=== PATIENT | female | born 1975 | race Caucasian/White ===

== ENCOUNTER → 2019-06-13 | Outpatient (CLI) | payer SELFPAY | END | disposition home or self-care (01) | LOC: COVID19 11:57 | DX: U07.1 COVID-19 (principal) ==

== ENCOUNTER 2023-10-03 22:25 | Emergency (ER) | payer OTHER ==
[~2023-10-03] VITALS: Ht 182.8 cm; Wt 97.5 kg
[2023-10-03] MEDS ORDERED: NAPROSYN500 MG PO ×2 (22:49→23:04)
[2023-10-03] MEDS ORDERED: PENICILLIN VK500 MG PO ×2 (22:49→23:04)
[2023-10-03] MEDS ORDERED: PENICILLIN V POTASSIUM 500 MG TAB PO ONE (22:50)
[2023-10-03] MEDS ORDERED: Acetaminophen/Oxycodone 5 MG/325 MG TABLET PO ONE (22:50)
[2023-10-03] MEDS ORDERED: Ketorolac Tromethamine 60 MG/2 ML VIAL IM ONE (22:50)
== END 2023-10-03 23:06 | disposition home or self-care (01) ==
LOC: ED 22:25
DX: K04.7 Periapical abscess without sinus (principal); R22.0 Localized swelling, mass and lump, head; Z91.040 Latex allergy status